=== PATIENT | female | born 1965 | race Caucasian/White ===

== ENCOUNTER → 2016-10-16 | Outpatient (CLI) | payer MEDICARE ==
[2016-10-16 09:33] LABS: HEMOGLOBIN 11.8 gm/dl (12.3-15.3); RED BLOOD COUNT 4.33 M/UL (4.00-5.10); WHITE BLOOD COUNT 8.3 K/UL (4.5-11.0)
== END ==
PROVIDERS: Internal Medicine Hematology & Oncology
DX: D45 Polycythemia vera (principal)
CPT/HCPCS: 36415; 85025

== ENCOUNTER → 2016-10-29 | Outpatient (CLI) | payer MEDICARE, OTHER ==
[2016-10-29 13:28] LABS: HEMOGLOBIN 12.5 gm/dl (12.3-15.3); RED BLOOD COUNT 4.74 M/UL (4.00-5.10); WHITE BLOOD COUNT 10.6 K/UL (4.5-11.0)
== END ==
LOC: OPSV 10-23 09:30
PROVIDERS: Internal Medicine Hematology & Oncology
DX: D45 Polycythemia vera (principal)
CPT/HCPCS: 85025

== ENCOUNTER 2016-12-01 11:14 | Emergency (ER) | payer MEDICARE, OTHER ==
[2016-12-01 12:53] LABS: HEMOGLOBIN 11.4 gm/dl (12.3-15.3); RED BLOOD COUNT 4.48 M/UL (4.00-5.10); WHITE BLOOD COUNT 10.3 K/UL (4.5-11.0)
[2016-12-01 13:10] LABS: BUN/CREATININE RATIO 10 (0-10)
== END 2016-12-01 17:30 | disposition home or self-care (01) ==
LOC: ER1 11:14
PROVIDERS: Emergency Medicine
DX: R10.11 Right upper quadrant pain (principal); R11.0 Nausea; I10 Essential (primary) hypertension; Z88.8 Allergy status to other drugs, medicaments and biological substances
CPT/HCPCS: 36415; 71020; 80053; 81001; 82550; 82553; 83690; 83874; 84484; 85025; 85610; 85730; 87086; 93005; 96374; 96375; 96376; 99284; J2270; J2405; J7030; J7050; Q9962

== ENCOUNTER → 2020-09-12 | Outpatient (CLI) | payer MEDICARE ==
[~2020-09-12] MED LIST: BENTYL 20MG TAB20 MG PO; IMITREX50 MG PO; KEFLEX CAP 500500 MG PO; NORCO 7.5-3251 EACH PO; ONDANSETRON ODT4 MG PO; PANTOPRAZOLE SO40 MG PO; ZOFRAN ODT 4 MG4 MG SL
== END ==
LOC: MAMO 10:50
DX: Z12.31 Encounter for screening mammogram for malignant neoplasm of breast (principal)
CPT/HCPCS: 77063; 77067

== ENCOUNTER → 2021-05-22 | Outpatient (CLI) | payer MEDICARE | LOC: ECHO 10:26 | DX: R60.0 Localized edema (principal) | CPT/HCPCS: ECHO; 93306 ==

== ENCOUNTER → 2021-09-18 | Outpatient (CLI) | payer MEDICARE | LOC: EXRD 11:18 | DX: Z78.0 Asymptomatic menopausal state (principal) | CPT/HCPCS: 77080 ==

== ENCOUNTER → 2021-10-04 | Day surgery (SDC) | payer MEDICARE ==
[~2021-10-04] MED LIST changes: +BIOTIN2500 MCG PO; +DAILY VALUE1 EACH PO; +DIFLUCAN150 MG PO; +FLONASE ALLER15.8 ML; +GUAIFENESIN400 MG PO; +LEVOTHYROXINE75 MC1 PO; +MELOXICAM15 MG PO; +OMEPRAZOLE20 M2 PO; +ROBAXIN 750 MG750 MG GT; +SUMATRIPTAN SU100 MG PO; +VAZALORE81 MG PO; +VITAMIN B12-FO1 EACH PO; +VITAMIN D3125 MCG PO; +VITAMIN K2100 MCG PO; +ZINC50 M2 PO
== END | disposition home or self-care (01) ==
LOC: OR 05:48
DX: Z12.11 Encounter for screening for malignant neoplasm of colon (principal); C95.90 Leukemia, unspecified not having achieved remission; M19.90 Unspecified osteoarthritis, unspecified site; K21.9 Gastro-esophageal reflux disease without esophagitis; E03.9 Hypothyroidism, unspecified; I10 Essential (primary) hypertension; Z80.0 Family history of malignant neoplasm of digestive organs; Z83.71 Family history of colonic polyps; Z88.5 Allergy status to narcotic agent; Z88.8 Allergy status to other drugs, medicaments and biological substances; Z79.82 Long term (current) use of aspirin; Z85.830 Personal history of malignant neoplasm of bone; Z90.710 Acquired absence of both cervix and uterus; Z20.822 Contact with and (suspected) exposure to COVID-19
CPT/HCPCS: J2704; J7030